=== PATIENT | male | born 1975 | race Caucasian/White ===

== ENCOUNTER 2019-08-01 07:46 | Day surgery (SDC) | payer OTHER, SELFPAY ==
[2019-07-26 14:33] VITALS: BMI 33.7
[2019-08-01] VITALS (8 sets, daily range): BP systolic 114–142; BP diastolic 79–91; PULSE 77–82; RESP 14–15; TEMP 36.3–36.6; O2SAT 95–98; BMI 33.7
--- NOTE | 2019-08-01 | DI.RAD.S_ITS ---
PROCEDURE: XR ANKLE LT MIN 3V INDICATIONS: ORIF LEFT ANKLE TECHNIQUE: AP, lateral, and oblique views of the ankle were acquired. COMPARISON: [facility], MR, MR ANKLE LEFT WITHOUT CONTRAST, 04/05/2019, 14:33. [facility], CR, XR ANKLE 3 VIEWS WEIGHT BEARING LEFT, 04/03/2019, 16:12. FINDINGS: Intraoperative fluoroscopy documents surgical instrumentation of the left ankle, with surgical instruments projecting over the distal left tibia and left talus. IMPRESSION: Intraoperative fluoroscopy documenting surgical instrumentation of the left ankle. Please see separately dictated surgical operative report for further details. Dictated by: Wilbur Covarrubias M.D. on 08/01/2019 at 14:32 Approved by: Wilbur Covarrubias M.D. on 08/01/2019 at 14:36
--- NOTE | 2019-08-01 08:02 | PM.PREOP ---
Pre-operative Note Interval Note History & Physical reviewed/Exam performed by Physician: Yes Changes to H&P: No
[2019-08-01] MEDS: LACTATED RINGERS 1,000 ML 42 ML IV (08:15)
--- NOTE | 2019-08-01 08:54 | SUR.PREOP ---
Block start time [0847] . Monitoring initiated and maintained throughout procedure. Oxygen and medications given per anesthesiologist instructions. Patient remained stable throughout procedure, no adverse reactions noted. Block end time [0854].
[2019-08-01] MEDS: CEFAZOLIN 2 GM/100 ML FROZ.PIGGY IV (09:00)
--- NOTE | 2019-08-01 09:20 | SUR.OPER ---
Supine on padded OR bed, head on pillow, arms secured on padded arm boards at <90 degrees abduction, legs uncrossed, safety belt at thigh, left hip bump, tape over blanket over right lower leg.
[2019-08-01] MEDS: BUPIVACAINE 0.25% W/ EPI 30 ML VIAL INJ (09:55)
--- NOTE | 2019-08-01 10:48 | PM.PROC.1 ---
Procedures Date/Time Date of procedure: 08/01/19 Time of procedure: 08:45 General Procedure description: Ultrasound guided popliteal sciatic nerve block for post op pain control after left ankle surgery by Dr. Andrew. Risk and benefits of procedure discussed with patient. ASA monitoring applied to patient. Oxygen given via nasal cannula. 2 mg Versed and 50 mcg fentanyl given for procedural sedation. Skin site was prepped with chlorhexidine and allowed to fully dry. Sterile gloves, mask, hat and probe cover were used to maintain sterility. 2% lidocaine and 30ga needle was used to make a small skin wheal at needle insertion site. Under ultrasound guidance, a 21ga 100mm Pajunk needle was directed near the division of the sciatic nerve into tibial and peroneal nerve in the popliteal fossa (lateral approach). Patient reported no parasthesias. After negative aspiration, 20 mL 0.5% ropivicaine and 10mg dexamethasone were injected around sciatic nerve. Patient tolerated procedure well.
[2019-08-01] MEDS: OXYCODONE/ACETAMINOPHEN 5/325 TABLET 1 TAB PO ×2 (10:59→11:44)
--- NOTE | 2019-08-01 11:18 | P.OP_ITS ---
Operative Date/Time/Diagnoses Date of procedure: 08/01/19 Time of procedure: 09:18 Pre-op diagnosis: 1. Impingement left ankle joint 2. Closed nondisplaced fracture left talus, sequelae 3. Insufficiency fracture left talus 4. Posttraumatic arthritis left ankle Post-op diagnosis: same Procedure & Clinicians Procedure: 1. Arthroscopic assisted repair fracture talar dome left CPT code 06472 2. Excision bone spur tibia through open arthrotomy CPT code 16992 3. Excision partial talus, left cpt 08901 Same procedure as scheduled: Yes Indications: Trae is a 43-year-old male with a history of a nondisplaced left talar body fracture that was discovered late and treated non operatively. Now over 2 years later the patient has persistent pain in his ankle as well as impingement symptoms. 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 Notices anterior and anterior lateral ankle pain especially walking up steep inclines. He was noted to have cystic change at his talus as well as edema throughout the lateral part of the talar body. He does have evidence of degenerative change at the dome of the talus is this is limited to the lateral side. He also has large anterior distal tibial and lateral talar spurs. The patient was offered a debridement course impingement and a fixation of his continued insufficiency fracture of the talus utilizing bone cement. This was to address the patient's persistent bone marrow edema in the lateral part of the talus as well as address the cystic defects and try to prevent any continued collapse and allow the patient to have a joint sparing procedure. Given his young age he is not an ideal candidate for a fusion or replacement. And given his work requirements on steep inclines and ankle fusion would not be ideal for this patient. The risks and benefits of the procedure have been discussed with the patient even opportunity to ask questions. The risks of fer robby include but are not limited to infection, malunion, nonunion, persistence of pain, damage to nerves and blood vessels, posttraumatic arthritis, DVT, PE, cardiopulmonary complications and . The patient expressed a thorough understanding of the risks and benefits of surgery and has elected to proceed. Consent was signed in the office today. The patient would like to proceed with a joint sparing procedure. Because he works for himself he is not able to take an extended time off his feet and declines a microfracture option. Surgeon: Brenda Andrew Click Yes if Unassisted: Yes Anesthesia Type: General, Peripheral nerve block and Local Operative Notes Findings: Large cystic lesion central and lateral talar dome this is drilled from a medial approach and filled with 1.5 cc of Acufill calcium phosphate. Additionally arthroscopy was undertaken. There were several smaller defects in the lateral talar cottage these were debrided using the shaver and curette. There was 1 larger anterior lateral flap tear that was trimmed to a stable border. Cartilage edges were well approximated and remained in place throughout ankle range of motion at the end of the procedure. Due to the large size of the anterior lateral talar osteophyte and the distal tibial osteophytes open arthrotomy was made these were taken off using the rongeur and osteotomes and confirmed on fluoroscopic imaging. Closure Type: primary Specimen(s): none sent Estimated Blood Loss (mL): 15 Blood products transfused: none Tourniquet time (min): 68 Procedure in detail: Patient was seen in the preoperative area the site of surgery was marked and informed consent confirmed. The patient was brought then brought to the block room by the anesthesia team. Patient elected for a postoperative regional block to help with postoperative pain control. Popliteal block was placed by the anesthesia team. The patient was then brought back to the operating room. General anesthesia was administered. The patient was position. All bony prominences were well-padded. Well-padded thigh tourniquet was placed. An SCD was placed on the contralateral lower extremity. The left lower extremity was prepped and draped in the standard sterile fashion. A formal time-out procedure was performed confirming the patient's side and site of surgery administration of appropriate preoperative antibiotics. All were in agreement. An Esmarch was used for exsanguination and the tourniquet was raised on the thigh to 250 mm of mercury and stayed there for approximately 60 minutes. Due to the size of the distal tibia and talar spurs was felt that removing these initially with aid with exposure to the joint surface. Therefore attention was turned to the anterior ankle an anterior lateral incision was made through the standard approach this was taken carefully down through the skin subcutaneous tissues. The superficial peroneal nerve and anterior compartment tendons were retracted medially. Joint arthrotomy was made. Synovitis was removed using the pituitary rongeur. The distal tibia and talus were exposed. An a small osteotome was used to remove the anterior distal talar spur this was confirmed on lateral imaging. The ankle was carefully held in dorsiflexion during this resection to protect the joint surface. Next the large left anterior lateral talar osteophyte was also encountered however we elected to remove this with a rongeur at the end of the procedure the to avoid any risk of extravasation of the calcium phosphate bone cement. Attention was then turned to positioning for the fixation of the talus insufficiency fracture. The C-arm was brought in and the trajectory for the cannula was marked out in the lateral and AP planes. Small stab incision was made medially for this and the hemostat was used for blunt dissection. Trocar was then placed lateral in line with the lateral process of the talus and advanced a crossed the talus from medial to lateral to the location of the bone marrow lesion and cystic change. Once this was in appropriate position the calcium phosphate cement was mixed and 1.5 cc was injected into the lesion. This was monitored under fluoroscopy and direct visualization through the arthrotomy. Towards the end of the injection there was and just very small amount noted to come into the joint and this was irrigated removed with ease. Once the cement was allowed to harden for 10 minutes the trocar was removed. And attention was turned to the cartilage of the talus. There were several small loose fragments of cartilage that were removed and a small loose edge from the osteotomy of the distal talus. Once these were removed the anterior lateral cartilage defect was exposed this was a flap with a loose anterior edge. This was debrided under arthroscopic guidance with the use of the shaver and the micro curette and grasper. Once this was completed the remainder of the cartilage was flush to the surface of the talar dome. This was probed and remained stable. The lateral talar dome was inspected with arthroscopy there were no significant lesions this aspect. The ankle was then taken through range of motion dorsiflexion plantar flexion and there was no noted instability of the cartilage lesions. This time the joint was irrigated shaver was reintroduced to clean up loose fragments and synovitis and then removed. Final irrigation was performed. The talar osteophyte was then removed with a rongeur and final x- rays were taken confirming adequate resection. The tourniquet was released and hemostasis achieved. The wound was closed in layers with 2 O Vicryl in the arthrotomy and 4 0 Monocryl subcutaneously in 3 O nylon in the skin. The medial stab incision was closed with a single 3 O nylon. Dressings were placed with Xeroform gauze and Tegaderm. And then AU splint was placed. Patient was woken from anesthesia and taken to the recovery room in good condition. There no immediate complications from this procedure. All counts were correct Complications: none Post-operative Condition: stable Disposition: PACU Plan for aftercare: Patient will be and a splint. He will elevate above the heart level as much as possible for the next few days. He may come out of the splint into a boot as tolerated. I have encouraged him to do limited or no weight-bearing for a few days and use crutches. But as pain improves he may weight bear as tolerated. I have discussed that he should wear the boot and avoid motion through the ankle joint while the incision is healing. He will follow up in 2 weeks for suture removal. Aspirin was advised for DVT prophylaxis
--- NOTE | 2019-08-01 11:50 | SUR.PHASEII ---
Pt reports only mild pain 2-3/10. Additional percocet given prior to departure. VSS, dressed with the aid of spouse. D/C instructions and medications were reviewed with pt and . Both verbalize understanding. Pt was escorted to ED entrance by varun in [facility]
== END 2019-08-01 11:49 | disposition home or self-care (01) ==
PROVIDERS: PCP Family Medicine; Visit Provider Orthopaedic Surgery Foot and Ankle Surgery
PROC: (CPT 29892; principal; 2019-08-01 08:45)
DX: S92.145D Nondisplaced dome fracture of left talus, subsequent encounter for fracture with routine healing (principal); M25.872 Other specified joint disorders, left ankle and foot; S92.12 Fracture of body of talus; G89.18 Other acute postprocedural pain; M19.172 Post-traumatic osteoarthritis, left ankle and foot; W17.89XS Other fall from one level to another, sequela
CPT/HCPCS: 29892; 28120; 27635; 64445; 64450; 73610; 76000; J0690; J1100; J1885; J2250; J2405; J2704; J3010

== ENCOUNTER 2023-02-09 09:27 | Day surgery (SDC) | payer OTHER, SELFPAY ==
[2023-02-03 13:35] VITALS: BMI 34.2
[2023-02-09] VITALS (16 sets, daily range): BP systolic 107–147; BP diastolic 60–94; PULSE 66–98; RESP 12–22; TEMP 35.7–37; O2SAT 92–100; BMI 34.2
--- NOTE | 2023-02-09 06:00 | DI.RAD.S_ITS ---
PROCEDURE: XR KNEE RT 1TO2V INDICATIONS: Postop TECHNIQUE: 2 view(s) of the knee acquired. COMPARISON: None. FINDINGS: Bones: Patient is status post knee joint arthroplasty. Hardware components are in expected positions. Visualized bony structures are intact. Soft tissues: Overlying postoperative changes are noted. IMPRESSION: Postop changes from right total knee arthroplasty with anatomic right knee alignment. Dictated by: Justin Gordon M.D. on 02/09/2023 at 13:18 Approved by: Justin Gordon M.D. on 02/09/2023 at 13:19
[2023-02-09] MEDS: ACETAMINOPHEN 325 MG TABLET 975 MG PO (10:09)
[2023-02-09] MEDS: LACTATED RINGERS 1,000 ML 42 ML IV ×2 (10:09→12:46)
[2023-02-09] MEDS: PREGABALIN 75 MG CAPSULE PO (10:10)
[2023-02-09] MEDS: CELECOXIB 200 MG CAPSULE PO (10:11)
[2023-02-09 10:24] LABS: COVID19 -Nasal RAPID Negative (Negative)
--- NOTE | 2023-02-09 11:28 | PM.PREOP ---
Pre-operative Note Interval Note History & Physical reviewed/Exam performed by Physician: Yes Changes to H&P: No
[2023-02-09] MEDS: CEFAZOLIN 2 GM/100 ML PREMIX 100 ML IV ×2 (11:50→21:51)
[2023-02-09] MEDS: TRANEXAMIC ACID 1,000 MG VIAL 1000 MG INJ (12:05)
--- NOTE | 2023-02-09 12:14 | SUR.OPER ---
Supine on padded OR bed. Pillow under head, arms secured on padded armboards <90 degree abduction. Safety belt across torso. Non-operative leg secured with tape over blanket over lower leg. Operative leg secured in DeMayo/Anupam/Nathe positioner. Foam padded brace at thigh of operative leg.
[2023-02-09] MEDS: BUPIVACAINE LIPOSOME 266 MG/20 ML VIAL INJ (12:21)
[2023-02-09] MEDS: MORPHINE 4 MG/ML INJ INJ (12:22)
[2023-02-09] MEDS: BUPIVACAINE 0.25% (PF) 60 ML, EPINEPHrine 0.3 MG INJ (12:24)
--- NOTE | 2023-02-09 12:28 | PM.PNB.1 ---
Peripheral Nerve Block Note Pre-Procedure Reason for block: Attending surgeon request/order for post-op pain management Consent obtained from: Patient Procedure Date of procedure: 02/09/23 Start Time: 11:25 End Time: 11:35 Performed by: Jose Chapa Sedation - enter dose in comment field: IV Midazolam (mg) (1) and IV Fentanyl (mcg) (50) Location: Pre-Op Position: Supine Sterile Technique: U/S probe cover and Chloraprep Skin Wheal: Lidocaine 1% mL: 1 Gauge: 27 Equipment Single injection - Needle brand, gauge, length: 22 gauge needle Medications Medications - enter concentration (%) & mL in comment field: Bupivacaine (0.5% 20 ml) Test Dose: Negative Incremental aspiration prior to injection: Yes Ultrasound Reason for Ultrasound: U/S guidance used for needle placement and U/S used to visualize spread of anesthetic Image printed/saved/archived: Yes Vital signs VS: - 02/09/23 10:14 Temperature 97.7 F Pulse Rate 73 Respiratory Rate 13 Blood Pressure 135/85 Pulse Oximetry 98 Oxygen Delivery Method Room Air Oxygen Delivery Method Room Air
--- NOTE | 2023-02-09 12:31 | PM.AN.REGBLK ---
Regional Block Pre-procedure Medications: Current Medications Generic Name Dose Route Start Last Admin Trade Name Gigiq PRN Reason Stop Dose Admin Fentanyl 0 mcg 02/09/23 10:38 Fentanyl 100 Mcg/2 Ml Inj IV Q5M PRN Pain, Moderate (4-6) Hydromorphone HCl 0 mg 02/09/23 10:38 Hydromorphone 2 Mg Inj IV Q5M PRN Pain, Moderate (4-6) Lactated Ringer's 1,000 mls @ 42 mls/hr 02/09/23 06:00 02/09/23 10:09 Lactated Ringers IV 42 mls/hr CONT ESAU Administration Ondansetron HCl 4 mg 02/09/23 10:38 Ondansetron 4 Mg/2 Ml Inj IV NOW PRN Nausea And Vomiting Oxycodone/Acetaminophen 1 tab 02/09/23 10:38 Oxycodone/Acetaminophen 5/325 Tablet PO PACUNOW PRN Mild or Moderate Pain Tranexamic Acid 1,000 mg 02/09/23 06:00 02/09/23 12:05 Tranexamic Acid 1,000 Mg Vial INJ 1,000 mg INTRA-OP PRN Administration Bleeding Allergies: Allergies Allergy/AdvReac Type Severity Reaction Status Date / Time No Known Drug Allergies Allergy Verified 02/09/23 09:47
--- NOTE | 2023-02-09 13:41 | PM.OP.1 ---
Operative Date/Time/Diagnoses Date of procedure: 02/09/23 Time of procedure: 13:41 Pre-op diagnosis: Post traumatic osteoarthritis, right knee Post-op diagnosis: same Procedure & Clinicians Procedure: Right total knee replacement Same procedure as scheduled: Yes Indications: The patient has a past history of significant knee trauma and has had progressively worsening right knee pain with radiographic changes consistent with arthritis. Non-operative management has failed and the patient has requested total knee replacement. The risks, benefits and alternatives to surgery were discussed with the patient prior to proceeding. Risks discussed included, but were not limited to, failure to relieve pain, stiffness, infection, nerve damage, deep venous thrombosis, pulmonary embolism, stroke, coma, heart attack, permanent paralysis and , as well as the potential need for eventual revision of the prosthetic. Surgeon: Don Reyes Sap Bobj Developer: Derik Mandujaon Click Yes if Unassisted: No Anesthesia Type: General, Peripheral nerve block and Local Operative Notes Findings: Severe tricompartmental post traumatic osteoarthritis with hemosiderin deposits indicating recent intra-articular bleeding. Closure Type: primary Specimen(s): none sent Prosthetic devices, grafts, tissues, transplants, or devices: Implants used in this procedure were manufactured by the [employer] and [employer] and included the BCS II Journey total knee replacement with a size 9 right cobalt chromium femoral component, a size 7 non porous tibial base plate, a 9 mm cross-linked polyethylene tibial insert and a 38 mm oval Geno II patella. Applied: implant(s) Estimated Blood Loss (mL): 50 Blood products transfused: none Tourniquet time (min): 64 Procedure in detail: The patient was seen in the pre-operative area, where the patient identified the right knee as the operative site and this was marked with my initials. The patient received pre-operative antibiotics, and was taken to the operating room and placed on the operative table in the supine position. After satisfactory anesthesia, a multimedia artist out was performed. The right leg was encircled with a tourniquet about the proximal thigh, and the leg was prepared from the toes to the tourniquet with ChloroPrep in the usual fashion and draped through sterile drapes. The leg was elevated and exsanguinated with Eschmark bandage and the tourniquet inflated to 250 mmHg pressure. The knee was approached through an approximately 18 cm incision centered over the patella and carried into the knee through a medial parapatellar arthrotomy. The anterior osteophytes and soft tissues were removed. The rotational landmarks of Pee's line and the transepicondylar axis were marked on the femur with electrocautery, and intramedullary guide holes for the femur and tibia were created. The distal femoral cut was made in 6 degrees of valgus using the intramedullary guide at the +1 cut setting due to a mild flexion contracture. Femur was sized and found to be a size 9 so an additional 2 mm cut was taken to accommodate the macro prosthetic. The knee was very tight and to improve access to the femur, the patellar cut was made and a metal protector applied. The anterior, posterior and chamfer cuts were then made. The proximal tibial cut was made using an intramedullary guide taking 9 mm of bone from the less involved lateral side. The posterior osteophytes and soft tissues were then removed. The posterior capsule was injected with part of a mixture of 40 ml 0.25% Marcaine mixed with 20 ml Exparel and 4 mg of morphine for post-operative pain control. The remainder of this mixture was injected into the capsule and subcutaneous tissues during cement curing. The tibia was prepared with the rotation set by an extra medullary guide. Trial tibial and femoral components were then placed and the intercondylar notch cut through the femoral trial. Range of motion was 0-135 degrees, with good stability throughout the range. Patellar tracking was checked with the trial components. There was no need for a lateral release. The trials were then removed, and the femoral hole plugged with a bone plug. The bone was prepared with pulsatile lavage, and dried with a sponge. Cement was applied and the final prosthetics placed. Excess cement was removed during and after cement curing. After confirming there was no extruded cement posteriorly, the final tibial insert was placed. The knee was copiously irrigated and the tourniquet deflated. Hemostasis was obtained. The capsule was closed with interrupted # 2 polyester suture. The subcutaneous layer was closed with 3-0 Vicryl, and the skin with a running 3-0 V-Lock suture and Dermabond. An Aquacel Ag dressing was applied and the patient was taken to recovery having tolerated the procedure well. The services of a skilled special events assistant were necessary for positioning, exposure and for retraction to protect vital structures. Without the services of Mr. Mandujano, the procedure could not have moved forward in a safe, expedient fashion. Complications: none Post-operative Condition: stable Disposition: PACU Plan for aftercare: The patient will be maintained in the hospital overnight due to the relatively late hour of the day of his surgery. He will be discharged tomorrow provided he meets physical therapy requirements for discharge.
[2023-02-09] MEDS: OXYCODONE/ACETAMINOPHEN 5/325 TABLET 1 TAB PO (14:37)
--- NOTE | 2023-02-09 15:09 | SUR.PHASEI ---
Called Dr Reynoso in OR#1. Received order for oxycodone as patient has received total dose of APAP for the moment.
[2023-02-09] MEDS: OXYCODONE IR 5 MG TABLET PO ×2 (15:17→21:48)
[2023-02-09] MEDS: LACTATED RINGERS 1,000 ML 100 ML IV (15:55)
[2023-02-09] MEDS: IBUPROFEN 600 MG TABLET PO ×2 (15:57→21:53)
--- NOTE | 2023-02-09 15:57 | PT-IP ANOTE ---
Visited with patient upon arrival to room, locked foot of bed into full extension, educated patient and RN to avoid placing pillows directly under knee while resting. Instructed patient in heel slides and to perform as tolerated every hour while awake. Will plan to eval tomorrow AM.
[2023-02-09] MEDS: hydrOXYzine pamoate 25 MG CAPSULE PO ×2 (17:34→23:30)
[2023-02-09] MEDS: DOCUSATE 100 MG CAPSULE PO (21:47)
[2023-02-09] MEDS: ASPIRIN EC 81 MG TABLET PO (21:48)
[2023-02-09] MEDS: ACETAMINOPHEN 325 MG TABLET 650 MG PO (21:53)
[2023-02-10] MEDS: OXYCODONE IR 10 MG TABLET PO ×3 (00:48→11:21)
[2023-02-10 03:42] VITALS: BP 124/76; PULSE 78; RESP 18; TEMP 36.8; O2SAT 95
[2023-02-10] MEDS: IBUPROFEN 600 MG TABLET PO ×2 (03:46→09:28)
[2023-02-10] MEDS: ACETAMINOPHEN 325 MG TABLET 650 MG PO ×2 (03:46→08:29)
[2023-02-10] MEDS: CEFAZOLIN 2 GM/100 ML PREMIX 100 ML IV (03:47)
[2023-02-10] MEDS: OXYCODONE IR 5 MG TABLET PO (03:47)
[2023-02-10] MEDS: hydrOXYzine pamoate 25 MG CAPSULE PO ×2 (03:47→09:28)
[2023-02-10] MEDS: HYDROMORPHONE 0.5 MG INJ IV ×2 (04:45→04:46)
[2023-02-10 05:16] LABS: Hematocrit 34.5 % (41-53); Hemoglobin 11.9 g/dL (13.5-17.5)
--- NOTE | 2023-02-10 06:58 | P.DS_ITS ---
History of Present Illness History of Present Illness Date Patient Seen: 02/10/23 Time Patient Seen: 06:58 Chief complaint: Right knee pain. Narrative: The history and physical is contained in the chart previously completed note. Please refer to that note for this information. Discharge Providers Provider Date of admission: February 09, 2023 Discharge Date: 02/10/23 Primary care physician: Tyrone Vernon MD Consults: 02/09/23 15:30 Consult to Discharge Planning Routine Comment: Consult to Occupational Therapy Evaluate & Treat Comment: Physician Instructions: Evaluate and treat Consult to Physical Therapy Evaluate & Treat Comment: Physician Instructions: postop TKA protocol Discharge provider: Don Reyes MD Summary Hospital Course Discharge Diagnosis: 1. Posttraumatic osteoarthritis of the right knee 2. Post hemorrhagic anemia Hospital Course: The patient was admitted to the hospital and taken directly to the operating room on February 09, 2023. He underwent a right total knee replacement for severe p osttraumatic osteoarthritis. He had moderate pain control difficulties postoperatively and was maintained in the hospital overnight. On postoperative day 1 he was felt to be ready for discharge home. He had a mild post hemorrhagic anemia which is anticipated will resolve with normal diet. Status at Discharge Cognitive/behavioral status at discharge: at baseline, oriented Functional status at discharge: uses cane/walker Overall status at discharge: patient is progressing back to baseline Time Spent with Patient Time spent: Less than 30 minutes Exam Vital Signs (past 8 hours): - 02/10/23 03:42 Temperature 98.3 F Pulse Rate 78 Respiratory Rate 18 Blood Pressure 124/76 Pulse Oximetry 95 Oxygen Delivery Method Room Air Narrative Exam Narrative: Right knee wound is dressed with no drainage on the bandage. Calf is soft. Light touch and motion are intact in the right lower extremity. Objective Labs 02/10/23 04:35 Labs: Laboratory Results - last 24 hr 02/09/23 02/10/23 09:51 04:35 Hgb 11.9 L Hct 34.5 L SARS-CoV-2 (PCR) Negative [facility] Medical History (Updated 07/26/19 @ 14:36 by Zeina Mabry RN) Bilateral lower extremity edema Fracture of left talus (~2016) Surgical History (Updated 02/03/23 @ 14:03 by Zeina Mabry RN) History of ankle surgery (~08/01/19) Hx of right knee surgery (~2002) Social History (System 05/23/19 @ 08:15 by Alanis Carr) household members: spouse and children Smoking Status: Never smoker alcohol intake: current Discharge Assessment & Plan Assessment and Plan Assessment: Stable postoperative day 1 status post right knee replacement for posttraumatic osteoarthritis. He has a mild, anticipated post hemorrhagic anemia. Plan of Treatment: He will work with physical therapy. He will be discharged today. He will follow up at my office in 10-14 days. He has been previously given his postoperative pain medication of oxycodone. He has been instructed in the use of Tylenol and ibuprofen for additional pain control and the use of low-dose aspirin for DVT prophylaxis. Discharge Plan Discharge Plan Patient Disposition: Home Discharge orders & Medications Discharge Orders: Discharge (Order); Ordered 02/10/23 Ordered By: Don Reyes Prescriptions: New acetaminophen 325 mg Tablet 650 mg PO Q6H Qty: 250 0RF aspirin 81 mg Tablet,Delayed Release (Dr/Ec) 81 mg PO BID Qty: 84 0RF ibuprofen 600 mg Tablet 600 mg PO Q6H Qty: 250 0RF oxycodone 5 mg Tablet 5 mg PO Q4H PRN (Reason: Pain, Moderate (4-6)) Qty: 40 0RF Medication counseling provided by Pharmacist: No Follow up/Referrals: Tyrone Vernon MD [Primary Care Provider] - Don Reyes MD [Physician] - As previously scheduled Diet/Activity/Treatments Diet: Diet as Tolerated and Regular Activity: You may bear weight as tolerated on your right leg. Try to walk for 5-10 minutes every hour while you are awake, otherwise keep the leg elevated with the knee above the heart. Cold/Heat Therapy: You may apply ice for 15 minutes every hour as needed for pain control to the right knee Skin/Wound/Dressing Care Report to your healthcare provider any signs of infection, such as:: chills, fever, night sweats, increased pain, unusual drainage and unusual redness Dressing: You may remove the Romeo wrap 3 days after surgery and shower normally. Leave the deeper dressing in place until your postoperative follow-up. If the central portion of the deep dressing becomes saturated with either water or blood, please call the office to have it evaluated. Visit Report/Discharge Packet Instructions: DI for Knee Replacement Stand Alone Forms: Patient Portal/API, Surgery Discharge Discharge Data Primary Care Provider: Tyrone Vernon Attending Provider: Don Reyes
--- NOTE | 2023-02-10 08:25 | OT.IP.TRT ---
Current Diagnoses Unilateral post-traumatic osteoarthritis, right knee (02/09/23) Other specified postprocedural states (02/09/23) Surgery Performed Operation Date: 02/09/23 11:45 Actual Procedures p Total Knee Arthroplasty(Right) - Don Reyes MD Occupational Therapy Treatment Note M2 OT-IP Current Condition Start: 02/10/23 08:32 Freq: Status: Active Protocol: Document 02/10/23 08:15 [facility] (Rec: 02/10/23 08:47 [facility] [id number]) Occupational Therapy Current Condition Current Condition Evaluation Date 02/10/23 Treatment Diagnosis S/P R TKA Diagnosis Onset Date 02/09/23 M3 OT- IP Subjective and Pain Start: 02/10/23 08:32 Freq: Status: Active Protocol: Document 02/10/23 08:15 [facility] (Rec: 02/10/23 08:47 [facility] [id number]) OT- Subjective Occupational Therapy Visit Type Type Treatment Note Visit Start Time 08:15 Visit Stop Time 08:25 Total Visit Minutes 10 Occupational Therapy Visit Comments Patient Comments Pt in too much pain at this time and just wanting to have pain medications prior to getting up. Pt states has already has been up with the FWW 5 x. Pt agreed to talk to OT regarding OT needs. Patient/Caregiver Goals TO go home. OT Pain Assessment Pain When Pain Assessed At Rest Pain Present Pain Present Pain Reported Location right knee Intensity 7 Scale Used Numeric (0 - 10) M4 OT- IP ADL's Start: 02/10/23 08:32 Freq: Status: Active Protocol: Document 02/10/23 08:15 [facility] (Rec: 02/10/23 08:47 [facility] [id number]) OT [id number] General Evaluation Self-Feeding Ability Independent OT ADL-Grooming General Evaluation Grooming Ability Independent OT ADL-Dressing Comments OT Dressing Comments Spoke of LB dressing equipment , pt states his and daughter to assist. Pt states is barefooted or just uses slippers. Educated pt to dress his right LE first and take out last. OT ADL-Toileting Comments OT Toileting Comments Pt states only gets up once at night but states bathroom very close by and aware to try to decrease liquids closer to night time. OT ADL-Bathing Comments OT Bathing Comments Suggested a shower chair may be helpful, pt states will think about it- but has his to assist as needed. Pt is aware to slide his right leg forwards prior to stand and sitting down. M6 OT- IP Functional Cognition Start: 02/10/23 08:32 Freq: Status: Active Protocol: Document 02/10/23 08:15 [facility] (Rec: 02/10/23 08:47 [facility] [id number]) Cognitive Factors Limiting Selfcare Function Cognitive Ability Level of Alertness Alert Patient Orientation Name,Age,Birthday,Month,Date, Year,Day of Week,Place, Situation Attention Span Ability Capable of Focused Attention, Capable of Sustained Attention Ability to Follow Commands Able to Follow Multi-Step Commands Cognitive Comments Cognitive Assessment Comments pt intact M9 OT- IP Assessment and Plan Start: 02/10/23 08:32 Freq: Status: Active Protocol: Document 02/10/23 08:15 [facility] (Rec: 02/10/23 08:47 [facility] [id number]) OT Summary Assessment and Plan Potential Rehabilitation Potential Excellent Analytic Complexity at Evaluation Low Summary OT Impairments Pain,Functional Mobility Assessment Summary NOt able to do OT eval as pt wanting pain medications prior to getting up but already has gotten up to use the bathroom multiple times with nursing and will seeing Pt later for mobility needs. Therefore able to do OT treatment for ADl needs for equipment and techniques to increased ease and safety. Pt looking to hopefully go home today. Frequency of Treatment Frequency Of Treatment Discharge Discharge Recommendations OT Discharge Recommendations Home with Assistance Home Equipment Needs shower chair Transportation Needs at Discharge Private Vehicle
[2023-02-10] MEDS: ASPIRIN EC 81 MG TABLET PO (08:30)
[2023-02-10] MEDS: DOCUSATE 100 MG CAPSULE PO (08:31)
--- NOTE | 2023-02-10 08:59 | CM.DANOTE ---
DCP: Case received, EMR reviewed and met with patient. Introduced self and role. Was able to complete DCP assessment based upon information currently available. Patient is a 47 year old male who admitted yesterday morning to the care of the orthopedic team. PCP: Dr. Vernon. Payer: confirmed: [employer]. Patient came to the hospital via private vehicle for a surgical procedure. Patient had a right total knee replacement. Patient has history of post traumatic osteoarthritis of the right knee. Met with patient, he was laying flat on his bed, alert and oriented. Confirmed that he resides in [place] with spouse, Stephanie. He is independent, active at baseline, and is employed at [employer]. P: Patient has discharge orders, will be working with [employer]. today. Stated that he only has one or two steps to get into the house. Antonina Corea RN/Social Insurance Analyst Discharge Planning/Care Management CM Discharge Assessment Start: 02/10/23 08:58 Freq: Status: Active Protocol: Document 02/10/23 08:58 (Rec: 02/10/23 08:59 [id number]) Discharge Planning Assessment Assigned Log Haul Chain Feeder Antonina Corea RN/Social Insurance Analyst Advance Directives? No History Provided By Patient,Medical Record Prior Living Arrangements Apartment/Condo Household Members spouse,children Type of transporation used prior to Drives own vehicle admit Independent with ADL's Yes Is patient alert and oriented? Yes Caregiver for Another No Barriers to Discharge No Discharge Plan Home Transportation Arrangement Spouse Referrals Initiated None needed Whiteboard Updated in Patient Room with Yes name and ext. # of Log Haul Chain Feeder Review Status In Process Next Review Type Continued Stay Review Pre-Anesthesia Assessment Start: 02/03/23 13:35 Freq: Status: Active Protocol: Document 02/03/23 13:35 CAB (Rec: 02/03/23 14:18 CAB [id number]) Pre-Anesthesia Assessment Preferred Name Tong Patient Information Reviewed Via Phone Assessment Assessment Completed With Patient Diagnostic Results BMP/CMP,CBC,EKG Comment Outside labs/ekg scanned Primary Care Provider Tyrone Vernon Seen Specialist in Last 12 Months Yes Specialist Seen Orthopedist Primary Language Romansh Stock Saw Operator Required No Height 5 ft 7.5 in Weight 222 lb Body Mass Index (BMI) 34.2 Hearing Ability Normal Visual Assist Magnifying Glass Dentition Type Teeth, Natural Present,Teeth, Broken Barriers to Learning None Other Aids No Hx Anesthesia Reactions No Hx Family Anesthesia Reaction No Hx Malignant Hyperthermia No Hx Blood Transfusions No Hx Blood Transfusion Reaction No Anesthesia Review Requested No Controls Operator Molded Goods No alcohol intake current alcohol intake frequency a few times a month Smoking Status Never smoker Substance Use Type does not use Pain Present Pain Reported Musculoskeletal Symptoms Abnormal Gait,Difficulty Walking,Joint Pain History of Falling (Recent or History of No ) Patient is completely paralyzed or No completely immobile Mental Status Oriented to own ability Is patient on oxygen? No Does patient have LI/SOB No Hx Sleep Apnea No Currently Taking a Beta Chhaya No Can You Climb a Flight of Stairs Without Yes SOB Hx Chest Pain No Hx SOB No Hx Syncope or Dizziness No Anti-Coagulant Therapy No Has a Rubber Stamp Assembler No Cardiac Testing No Hx Pacemaker/ICD No Pacemaker Rep Required? No Diet Type At Home Regular,Vegetarian Dysphagia No Gastrointestinal Symptoms None Chronic UTI No Urinary Catheter Present No Hx Urinary Self Catheterization No Diabetes No Hx Drug Resistant Organism No Presence of External or Internal Medical Yes: right knee screws Devices Have you had any close contact with No someone diagnosed with COVID-19? Received a COVID vaccine? No Marital Status Lives With spouse,children Current Living Arrangements Apartment/Condo Number of Floors (Floors) One Floor Support System Spouse Does the Patient Have Assistance After Yes Surgery Patient Discharge Plan Description Return Home Comment Pt advised possible overnight length of stay per surgeon Feels Safe in Current Environment Yes Been Physically Hurt or Threatened By a No Person in Current Environment Do you have thoughts of harming yourself None or others? Are you currently considering suicide? No Do you have a plan to hurt yourself or No Plan others? Do You Have Any Spiritual Beliefs That No May Affect Your HC Choices? Do You Have Any Cultural Practices That No May Affect Your HC Choices? Who Can We Speak to About Patient's Care Family, friends Identifying Code for Release of Patient Declines to issue Information Health Care Proxy/Next of Kin Stephanie () Health Care Proxy Emergency Contact Name Stephanie () Emergency Contact Advance Directives? No Power of Cheese Wrapper No PAC Instructions Durable medical equipment, Medications to take/avoid, Nasal antibiotic,No ETOH/ petroleum product on skin DOS, NPO,Post-op transportation,Pre -surgical wash,Sturdy shoes/ comfortable clothes,Do not bring valuables and remove jewelry
--- NOTE | 2023-02-10 10:36 | PT.IIE ---
Current Diagnoses Unilateral post-traumatic osteoarthritis, right knee (02/09/23) Other specified postprocedural states (02/09/23) Surgery Performed Operation Date: 02/09/23 11:45 Actual Procedures p Total Knee Arthroplasty(Right) - Don Reyes MD Surgical History (This Medical Record has been edited. Action required.) History of ankle surgery (~08/01/19) Hx of right knee surgery (~2002) Medical History (This Medical Record has been edited. Action required.) Bilateral lower extremity edema Fracture of left talus (~2016) Physical Therapy Inpatient Evaluation/Re-Eval M1 PT/OT-IP Prior Functional Status Start: 02/10/23 08:32 Freq: NEEDED Status: Active Protocol: Document 02/10/23 10:22 ES (Rec: 02/10/23 10:36 ES [id number]) Medical Review Prior Functional Status Medical History Reviewed Yes Diet/Fluid Consistency Regular Communication Independent Mobility and Gait Modified independent, limited distance ambulation Activities of Daily Living and IADL's Pt states able to do ADl's but had pain. Prior Functional Level (Other details) Patient reported he had very limited ROM in R knee prior to surgery, has been like that for several years. Social History Household Members spouse,children Living Arrangements Apartment/Condo Number of Floors (Floors) One Floor Number of Stairs To Enter/Railing? 2 steps with landing in between, no rails Home Environment Standard Height Toilet,Walk in Shower,Tub/Shower Home Equipment Front Wheel Walker,Hand Held Shower Employment Status [employer] Employed Additional Social History Comment Works in construction. M2 PT-IP Current Condition Start: 02/10/23 10:22 Freq: NEEDED Status: Active Protocol: Document 02/10/23 10:22 ES (Rec: 02/10/23 10:36 ES [id number]) Physical Therapy Current Condition Current Condition Evaluation Date 02/10/23 Treatment Diagnosis S/p R TKA Onset Date 02/09/23 M3 PT-IP Subjective Start: 02/10/23 10:22 Freq: NEEDED Status: Active Protocol: Document 02/10/23 10:22 ES (Rec: 02/10/23 10:36 ES [id number]) Subjective Physical Therapy Visit Type Type Initial Evaluation Visit Start Time 09:25 Visit Stop Time 09:53 Total Visit Minutes 28 Physical Therapy Visit Comments Patient Comments Patient reported he didn't get much sleep last night, was uncomfortable in the hospital bed. Patient reported his R thigh is where he's having most of his pain. Patient agreeable to work with PT. Patient Goals To have functional use of the R leg. Therapy Pain Assessment Pain When Pain Assessed During Mobility Pain Present Pain Present Pain Reported Location right knee Intensity 4 Scale Used Numeric (0 - 10) Pain Management Techniques Apply Cold,Elevation,Re- positioning,Timing of Activity with Medications M4 PT-IP Mobility and Gait Start: 02/10/23 10:22 Freq: NEEDED Status: Active Protocol: Document 02/10/23 10:22 ES (Rec: 02/10/23 10:36 ES [id number]) PT-Bed Mobility Assessment Supine to Sit Supine to Sit Independent Sit to Supine Sit to Supine Independent Scooting Scooting to Edge of Bed Independent Scooting Up and Down in Bed Independent PT-Transfer Assessment Sit to and From Stand Sit to and from Stand Independent,Use of Upper Extremities Equipment Transfer Assistive Device Front Wheeled Walker Orthotic/Prosthetic Devices or Brace: No Transfers Transfer Destination Bed Transfer Technique Ambulation Transfer Ability Level of Assist Independent,Use of Upper Extremities Gait Assessment Gait Gait Assistance Required: Independent Distance (Feet) 175 Assistive Devices Assistive Device Front Wheeled Walker Orthotic/Prosthetic Devices or Brace: No Gait Deviations General Gait Pattern Antalgic,Decreased Feet Clearance Factors Limiting Gait Function Factors Limiting Gait Function Limited Range of Motion,Pain Comments Gait Comments Patient ambulated initially with step-to pattern, progressing to step-through with cues. Patient demonstrated decreased R knee flexion/extension during gait due to limited ROM, making it difficult for him to achieve full clearance of R foot during swing through. Educated patient to keep working on this at home as ROM improves. Stair Climbing Assessment Comments Stair Climbing Comments Discussed stairs with patient; he has been doing step- through pattern on stairs prior to surgery and feels comfortable doing so when he goes home and declined to practice with PT. Instructed patient to put FWW up on stair to ascend and below stair when descending and patient demonstrated good understanding. PT-Balance Assessment Sitting Balance and Reactions Static Sitting Balance Ability Normal Dynamic Sitting Balance Ability Normal Standing Balance and Reactions Static Standing Balance Ability Good Dynamic Standing Balance Ability Good Device Used FWW M5 PT-IP Objective Assessments Start: 02/10/23 10:22 Freq: NEEDED Status: Active Protocol: Document 02/10/23 10:22 ES (Rec: 02/10/23 10:36 ES [id number]) Orientation Orientation/Cognition Level of Alertness Alert Orientation Name,Age,Birthday,Month,Date, Year,Day of Week,Place, Situation Language Function Ability No Deficits Noted Safety Awareness Understands Safety Issues Memory Description No Deficits Noted Gross Range of Motion Upper Extremity ROM Assessment Within Functional Limits Lower Extremity ROM Assessment Right Impaired Impairments R knee flexion 10-50 degrees, otherwise WFL Strength Upper Extremity Strength Assessment Within Functional Limits Lower Extremity Strength Assessment Right Impaired Comments Strength Comments RLE impaired 2/2 surgery. Fair (-) quad activation R. Otherwise WFL. Coordination Assessment Gross Coordination Gross Coordination WNL Sensation Assessment Sensation Gross Sensation WNL M6 PT-IP Treatment Start: 02/10/23 10:22 Freq: NEEDED Status: Active Protocol: Document 02/10/23 10:22 ES (Rec: 02/10/23 10:36 [id number]) Physical Therapy Treatment Exercises Exercises Ankle Pumps,Quad Sets,Heel Slides,Short Arc Quads,Passive Knee Extension Hang,Seated Knee Flexion/Extension Knee ROM Measurement 10-50 degrees R knee flexion Education Education Provided Precautions,Weight Bearing Status,Post-Op Packet,Safety M7 PT-IP Assessment and Plan Start: 02/10/23 10:22 Freq: NEEDED Status: Active Protocol: Document 02/10/23 10:22 ES (Rec: 02/10/23 10:36 [id number]) PT Summary Assessment and Plan Potential Rehabilitation Potential Good Status of Condition at Evaluation Stable Summary Impairments Pain,ROM,Strength,Gait Assessment Summary Patient is a 47 year old male s/p R TKA who presents at independent level of mobility using FWW. He was able to demonstrate good understanding of post-op instructions, and tolerated modified HEP with min A to perform due to pain, stiffness, and weakness. He was quite limited in ROM prior to surgery contributing to difficulty post-op. Patient was educated on the importance of gaining full extension early, and given goal of 90 degrees flexion over the next week. He is scheduled for OP PT starting next Tuesday. Patient has no further skilled PT needs at this time and is safe to d/c home. Frequency of Treatment Frequency Of Treatment Discharge Weight Bearing Status Weight Bearing Status Weight Bear as Tolerated Recommendations To Nursing Amount of Assist Needed Independent Discharge Recommendations PT Discharge Recommendations Home,Outpatient PT Transportation Needs at Discharge Private Vehicle
[2023-02-10 11:01] VITALS: BP 129/72; PULSE 84; RESP 19; TEMP 37.1; O2SAT 97
--- NOTE | 2023-02-10 11:51 | PC.NURSE ---
Pt dressed with assistance from spouse. Spouse at bedside while giving pt teaching on medications, weight-bearing measures, s/s of infection and post sx precautions for R total knee. Pt and spouse had no further questions/concerns. Pt left unit @ 1150 with all belongings via wheelchair to V.
== END 2023-02-10 11:50 | disposition home or self-care (01) ==
LOC: OR 09:28 → AC 09:29
PROVIDERS: PCP Family Medicine; Referring Provider Orthopaedic Surgery; Visit Provider Orthopaedic Surgery
PROC: 0SRC0JZ Replacement of Right Knee Joint with Synthetic Substitute, Open Approach (ICD-10-PCS; CPT 27447; principal; 2023-02-09 11:45)
DX: M17.11 Unilateral primary osteoarthritis, right knee (principal); D50.0 Iron deficiency anemia secondary to blood loss (chronic); G89.18 Other acute postprocedural pain; Z20.822 Contact with and (suspected) exposure to COVID-19
CPT/HCPCS: 27447; 36415; 64450; 73560; 85014; 85018; 87635; 97161; 97535; C1776; C9803; C9290; J0171; J0690; J1170; J2250; J2270; J2704; J3010